=== PATIENT | male | born 1985 | race Caucasian/White ===

== ENCOUNTER 2021-08-29 18:04 | Emergency (ER) | payer OTHER ==
[~2021-08-29] VITALS: Ht 180.3 cm; Wt 100.0 kg
--- NOTE | 2021-08-29 19:05 | PHYS DOC ---
Past History Past Surgical History: Other Additional Past Surgical Histo: plate left 5th finger; vasectomy (BUCK TSANG APRN) Alcohol Use: Occasionally (BUCK TSANG APRN) General Adult EDM: Chief Complaint: BACK PAIN OR INJURY HPI: HPI: Patient is a 36-year-old male who presents with lower back pain that radiates down his right leg. Patient denies injury. Patient states that he has had the same pain before in the past, but it usually resolves after taking medication at home.. Patient reports taking ibuprofen this afternoon with little relief. Denies urinary retention or loss of bowel. No saddle anesthesia. No medical history. (BUCK TSANG APRN) Review of Systems: Review of Systems: ROS At least 10 ROS systems have been reviewed and are negative except as documented in the HPI. General: Negative except as outlined in HPI above. Skin: Negative except as outlined in HPI above. HEENT: Negative except as outlined in HPI above. Neck: Negative except as outlined in HPI above. Respiratory: Negative except as outlined in HPI above.. Cardiovascular: Negative except as outlined in HPI above. Abdomen: Negative except as outlined in HPI above. : Negative except as outlined in HPI above. Back/MSK: Negative except as outlined in HPI above. Neuro: Negative except as outlined in HPI above. Psych: Negative except as outlined in HPI above. (BUCK TSANG APRN) Allergies: Allergies: Allergies Coded Allergies Type Severity Reaction Last Updated Verified No Known Drug Allergies 08/29/21 No (BUCK TSANG APRN) Physical Exam: PE: Constitutional: Well developed, well nourished, no acute distress, non-toxic appearance. [] HENT: Normocephalic, atraumatic, bilateral external ears normal, oropharynx moist, no oral exudates, nose normal. [] Eyes: PERRLA, EOMI, conjunctiva normal, no discharge. [] Neck: Normal range of motion, no tenderness, supple, no stridor. [] Cardiovascular:Heart rate regular rhythm, no murmur [] Lungs & Thorax: Bilateral breath sounds clear to auscultation [] Abdomen: Bowel sounds normal, soft, no tenderness, no masses, no pulsatile masses. [] Skin: Warm, dry, no erythema, no rash. [] Back: Right-sided lower back tenderness that radiates down right leg Extremities: Right leg tenderness, no cyanosis, no clubbing, ROM intact, no edema. [] Neurologic: Alert and oriented X 3, normal motor function, normal sensory function, no focal deficits noted. [] Psychologic: Affect normal, judgement normal, mood normal. [] (BUCK TSANG APRN) Current Patient Data: Vital Signs: Vital Signs Date Time Temp Pulse Resp B/P (MAP) Pulse Ox O2 Delivery O2 Flow Rate FiO2 08/29/21 18:36 74 18 115/81 (92) 98 Room Air (BUCK TSANG APRN) EKG: EKG: [] (BUCK TSANG APRN) Radiology/Procedures: Radiology/Procedures: [] (BUCK TSANG APRN) Impressions: Exam: CT of lumbar spine without contrast INDICATION: Lower back pain, right-sided the hip TECHNIQUE: Sequential axial images through the lumbar spine obtained without IV contrast. Sagittal and coronal reformatted images were reconstructed from the axial data and reviewed. Exposure: One or more of the following in the visualized dose reduction techniques were utilized for this examination: 1. Automated exposure control 2. Adjustment of the MA and/or KV according to patient size 3. Use of iterative of reconstructive technique Comparisons: CT abdomen pelvis same day FINDINGS: Straightening of the lumbar spine which may positional. Vertebral body heights are well-maintained. Fracture to the lumbar spine is not identified. No significant spondylotic change in lumbar spine. IMPRESSION: Negative CT lumbar spine for acute traumatic injury. No significant spondylotic change identified. Electronically signed by: Odilon Faria MD (08/29/2021 9:57 PM) [facility] DICTATED AND SIGNED BY: ODILON FARIA MD DATE: 08/29/212154 CC: BUCK TSANG APRN; PCP,UNKNOWN ~MTH0 0 (JOSUE FLETCHER DO) Heart Score: C/O Chest Pain: No Risk Factors: Risk Factors: DM, Current or recent (<one month) smoker, HTN, HLP, family history of CAD, obesity. Risk Scores: Score 0 - 3: 2.5% MACE over next 6 weeks - Discharge Home Score 4 - 6: 20.3% MACE over next 6 weeks - Admit for Clinical Observation Score 7 - 10: 72.7% MACE over next 6 weeks - Early Invasive Strategies (BUCK TSANG APRN) Course & Med Decision Making: Course & Med Decision Making Pertinent Labs and Imaging studies reviewed. (See chart for details) [] 36-year-old male presents with right-sided, lower back pain that radiates down his right leg. Patient states he has had this same pain in the past. No trauma. No urinary retention. No loss of bowel. No saddle anesthesia. Work-up in ER consist of IM Toradol, IM Norflex. Patient states that pain was also radiating down his groin on the right side. UA obtained to rule out blood /infection UA negative for blood and infection. CT abdomen pelvis was unremarkable. Patient is still reporting pain. Patient given IM fentanyl along with a lidocaine patch. Reassessed patient. Patient states that pain has improved while he is laying still but anytime he tries to move he spasms all the way down his back and legs. CT lumbar spine ordered. Depo-Medrol IM injection given. Patient report given to at 2146 (BUCK TSANG APRN) Course & Med Decision Making The patient's lumbar CT is negative for acute findings. I do not have any objective reason for the patient's pain. I suspect he could be a bulging disc. I will treat him with steroids, Flexeril, and [place] for pain. I also advised that he ice the area multiple times tomorrow. He is stable for discharge at this time. (JOSUE FLETCHER DO) Dragon Disclaimer: Dragon Disclaimer: This electronic medical record was generated, in whole or in part, using a voice recognition dictation system. (BUCK TSANG APRN) Departure Departure: Impression: Primary Impression: Low back pain Qualified Codes: M54.41 - Lumbago with sciatica, right side Disposition: HOME / SELF CARE / HOMELESS Condition: STABLE Referrals: PCP,UNKNOWN (PCP) Patient Instructions: Back Pain, Adult, [id number] Additional Instructions: You were seen in the emergency room for lower back pain that radiated down your right leg. You received a CT of your abdomen and pelvis to rule out a kidney stone. CT of your abdomen was unremarkable. Your urine was also negative for blood or infection. Your pain was treated with IM Toradol, Norflex. You were also given IM fentanyl and a lidocaine patch. I am sending you home with a prescription for Flexeril. You can also take ibuprofen at home with the Flexeril to help with pain. You need to follow-up with your PCP for further management and possible further imaging. Return to the emergency room if you have worsening symptoms or concerns such as increasing pain, inability to ambulate, loss of bowel or unable to urinate. Otherwise follow-up with your PCP. EMERGENCY DEPARTMENT GENERAL DISCHARGE INSTRUCTIONS Thank you for coming to [facility] (ED) today and trusting us with you care. We trust that you had a positivie experience in our Emergency Department. If you wish to speak to the department management, you may call the director at [phone]. YOUR FOLLOW UP INSTRUCTIONS ARE FOLLOWS: 1. Do you have a private Doctor? If you do not have a private doctor, please ask for a resource list of physicians or clinics that may be able to assist you with follow up care. 2. The Emergency Physician has interpreted your x-rays. The X-Ray specialist will also review them. If there is a change in the findings, you will be notified in 48 hours when at all possible. 3. A lab test or culture has been done, your results will be reviewed and you will be notified if you need a change in treatment. ADDITIONAL INSTRUCTIONS AND INFORMATION: 1. Your care today has been supervised by a physician who is specially trained in emergency care. Many problems require more than one evaluation for a complete diagnosis and treatment. We recommend that you schedule your follow up appointment as recommended to ensure complete treatment of you illness or injury. If you are unable to obtain follow up care and continue to have a problem, or if your condition worsens, we recommend that you return to the ED. 2. We are not able to safely determine your condition over the phone nor are we able to give sound medical advice over the phone. For these safety reasons, if you call for medical advice we will ask you to come to the ED for further evaluation. 3. If you have any questions regarding these discharge instructions please call the ED at [phone]. SAFETY INFORMATION: In the interest of safety, wellness, and injury prevention; we encourage you to wear your sealbelt, if you smoke; quite smoking, and we encourage family to use a protective helmet for bicycling and other sporting events that present an increased risk for head injury. IF YOUR SYMPTOMS WORSEN OR NEW SYMPTOMS DEVELOP, OR YOU HAVE CONCERNS ABOUT YOUR CONDITION; OR IF YOUR CONDITION WORSENS WHILE YOU ARE WAITING FOR YOUR FOLLOW UP APPOINTMENT; EITHER CONTACT YOUR PRIMARY CARE DOCTOR, THE PHYSICIAN WHOSE NAME AND NUMBER YOU WERE GIVEN, OR RETURN TO THE ED IMMEDIATELY. Scripts Prednisone (PREDNISONE) 50 Mg Tablet 1 TAB PO DAILY for back pain, #5 TAB Prov: JOSUE FLETCHER DO 08/29/21 Hydrocodone/Acetaminophen (Hydrocodone-Acetamin 5-325 mg) 1 Each Tablet 1-2 EACH PO Q6HRS PRN for PAIN, #14 TAB Prov: JOSUE FLETCHER DO 08/29/21 Cyclobenzaprine Hcl (CYCLOBENZAPRINE HCL) 10 Mg Tablet 1 TAB PO TID PRN for PAIN for 5 Days, #15 TAB 0 Refills Prov: BUCK TSANG APRN 08/29/21 BUCK TSANG APRN Aug 29, 2021 19:05 JOSUE FLETCHER DO Aug 29, 2021 22:16
[2021-08-29] MEDS ORDERED: KETOROLAC 60 MG/2 ML VIAL. IM ONE (19:15)
[2021-08-29] MEDS ORDERED: ORPHENADRINE CITRATE 60 MG/2 ML VIAL. IM ONE (19:15)
[2021-08-29 20:05] LABS: AMORPHOUS SEDIMENT,UR PRESENT /HPF; BACTERIA,URINE 0 /HPF (0-FEW); CLARITY,URINE CLEAR; COLOR,URINE YELLOW; GLUCOSE,URINE NEG (NEG); NITRITE,URINE NEG (NEG); RBC,URINE 0 /HPF (0-2); UROBILINOGEN,URINE 0.2 mg/dL (0.2 mg/dL); WBC,URINE 0 /HPF (0-4)
[2021-08-29] MEDS ORDERED: HYDROcodone/APAP 5/325MG 1 TAB TABLET PO ONE ×2 (20:15→23:00)
--- NOTE | 2021-08-29 20:27 | RAD ---
CT abdomen pelvis without contrast dated 08/29/2021. COMPARISON: None. Clinical data indication: Right lower quadrant pain. TECHNIQUE: Contiguous axial imaging the abdomen pelvis performed without the administration of IV or oral contra st. One or more of the following individualized dose reduction techniques were utilized for this examinat ion: 1. Automated exposure control 2. Adjustment of the mA and/or kV according to patient size 3. Use of iterative reconstruction technique FINDINGS: Limited images of lung bases are clear. Heart size is within normal limits. No pleural or pericardial effusion. Solid abdominal viscera not well evaluated in the absence of contrast material. No apparent attenuati on abnormality of the liver or spleen. Pancreas, adrenal glands, gallbladder and kidneys are unremark able. No stone or hydronephrosis. Unopacified GI tract normal in caliber and contour. No focal bowel wall thickening. No inflammatory s tranding in the mesentery. The appendix is normal in caliber. No ascites or lymphadenopathy. Abdomina l aorta normal in caliber. Images of pelvis show nondistended urinary bladder. Prostate gland normal in size. No free fluid or p elvic adenopathy. There are nonpathologic enlarged bilateral inguinal lymph nodes, nonspecific. Bone window show no acute finding. Mild multilevel spondylosis. There are couple of nonspecific radio lucent foci within the right iliac bone. No periostitis or bone destruction. IMPRESSION: 1. No acute abnormality of abdomen or pelvis. Normal appendix. 2. There are couple of small well-circumscribed radiolucent foci in the right iliac bone, nonspecific but probably benign. Electronically signed by: Aurelio Fisher MD (08/29/2021 8:25 PM) [facility]
[2021-08-29] MEDS ORDERED: LIDOCAINE (700MG/PATCH) PATCH. ONE (20:47)
[2021-08-29] MEDS ORDERED: LIDOCAINE (700MG/PATCH) PATCH. TD SCH (21:00)
[2021-08-29] MEDS ORDERED: CYCL10TA19 PO (21:07)
--- NOTE | 2021-08-29 21:59 | RAD ---
Exam: CT of lumbar spine without contrast INDICATION: Lower back pain, right-sided the hip TECHNIQUE: Sequential axial images through the lumbar spine obtained without IV contrast. Sagittal an d coronal reformatted images were reconstructed from the axial data and reviewed. Exposure: One or more of the following in the visualized dose reduction techniques were utilized for this examination: 1. Automated exposure control 2. Adjustment of the MA and/or KV according to patient size 3. Use of iterative of reconstructive technique Comparisons: CT abdomen pelvis same day FINDINGS: Straightening of the lumbar spine which may positional. Vertebral body heights are well-maintained. Fracture to the lumbar spine is not identified. No significant spondylotic change in lumbar spine. IMPRESSION: Negative CT lumbar spine for acute traumatic injury. No significant spondylotic change identified. Electronically signed by: Isamar Bartholomew MD (08/29/2021 9:57 PM) [facility]
[2021-08-29] MEDS ORDERED: methylPREDNISolone ACETATE 80 MG/ML VIAL. IM ONE (22:00)
[2021-08-29] MEDS ORDERED: HYDR-2759 PO (22:41)
[2021-08-29] MEDS ORDERED: PRED50TA PO (22:43)
[2021-08-29 23:30] VITALS: BP 115/81
[2021-08-30] MEDS ORDERED: PATCH REMOVAL. MC SCH (09:00)
== END 2021-08-29 23:30 | disposition home or self-care (01) ==
LOC: ER 18:04
DX: M54.41 Lumbago with sciatica, right side (principal)
CPT/HCPCS: 72131; 74176; 81001; 96372; 99284; J1040; J1885; J2360; J3010